=== PATIENT | male | born 1960 | race African-American/Black ===

== ENCOUNTER 2021-12-18 08:07 | Emergency (ER) | payer MEDICAID, OTHER ==
[~2021-12-18] VITALS: Ht 167.6 cm; Wt 64.0 kg
[2021-12-18] MEDS ORDERED: TETANUS, DIPHTHERIA, PERTUSSIS VAC/PF 0.5ML (>10YR OLD) IM ONE (09:00)
[2021-12-18] MEDS ORDERED: IBUPROFEN 600MG TABLET PO ONE (09:00)
[2021-12-18] MEDS ORDERED: IBUP-2029 MT (09:06)
[2021-12-18] MEDS ORDERED: AMOX-424 MT (09:06)
[2021-12-18 09:11] VITALS: BP 155/101
== END 2021-12-18 09:27 | disposition home or self-care (01) ==
LOC: ER 08:07
DX: S80.872A Other superficial bite, left lower leg, initial encounter (principal); I25.10 Atherosclerotic heart disease of native coronary artery without angina pectoris; I10 Essential (primary) hypertension; E78.00 Pure hypercholesterolemia, unspecified; W54.0XXA Bitten by dog, initial encounter; Y93.89 Activity, other specified; Y92.89 Other specified places as the place of occurrence of the external cause
CPT/HCPCS: 90471; 90715; 99283

== ENCOUNTER 2021-12-22 08:26 | Emergency (ER) | payer OTHER ==
[~2021-12-22] VITALS: Ht 167.6 cm; Wt 63.0 kg
[~2021-12-22 08:26] MED LIST: AMOX-424 MT; IBUP-2029 MT
[2021-12-22 08:33] VITALS: BP 164/104
[2021-12-22] MEDS ORDERED: AMOXICILLIN/POTASSIUM CLAVULANATE 875/125MG TAB PO ONE (09:00)
== END 2021-12-22 09:06 | disposition home or self-care (01) ==
LOC: ER 08:26
DX: Z48.00 Encounter for change or removal of nonsurgical wound dressing (principal); I10 Essential (primary) hypertension; I25.10 Atherosclerotic heart disease of native coronary artery without angina pectoris; E78.00 Pure hypercholesterolemia, unspecified; F17.210 Nicotine dependence, cigarettes, uncomplicated; Z71.6 Tobacco abuse counseling
CPT/HCPCS: 99283; 99406

== ENCOUNTER 2024-05-05 05:49 | Emergency (ER) | payer MEDICAID, OTHER ==
[~2024-05-05] VITALS: Ht 167.6 cm; Wt 64.0 kg
[2024-05-05 05:55] VITALS: O2SAT 100
[2024-05-05] MEDS ORDERED: CEPH500C2 MT (07:27)
[2024-05-05] MEDS ORDERED: SULF1TAB47 MT (07:28)
[2024-05-05 07:42] VITALS: BP 147/89; PULSE 85; RESP 18; TEMP 36.83628; O2SAT 100
== END 2024-05-05 07:44 | disposition home or self-care (01) ==
LOC: ER 05:49
DX: S40.261A Insect bite (nonvenomous) of right shoulder, initial encounter (principal); W57.XXXA Bitten or stung by nonvenomous insect and other nonvenomous arthropods, initial encounter; Y93.89 Activity, other specified; Y92.89 Other specified places as the place of occurrence of the external cause; Y99.8 Other external cause status
CPT/HCPCS: 99283

== ENCOUNTER 2024-07-13 07:51 | Emergency (ER) | payer OTHER ==
[~2024-07-13] VITALS: Ht 167.6 cm; Wt 64.0 kg
[~2024-07-13 07:51] MED LIST changes: +CEPH500C2 MT; +SULF1TAB47 MT
[2024-07-13 07:54] VITALS: O2SAT 98
[2024-07-13] MEDS ORDERED: AZIT500T8 MT (08:29)
[2024-07-13] MEDS ORDERED: FLUT16SP15 BOTHNSTRLS (08:30)
[2024-07-13 09:00] VITALS: BP 152/80; PULSE 97; RESP 16; TEMP 36.94740; O2SAT 98
== END 2024-07-13 09:00 | disposition home or self-care (01) ==
LOC: ER 07:51
DX: J18.9 Pneumonia, unspecified organism (principal); J06.9 Acute upper respiratory infection, unspecified; M46.1 Sacroiliitis, not elsewhere classified; I10 Essential (primary) hypertension; Z79.899 Other long term (current) drug therapy; Z20.822 Contact with and (suspected) exposure to COVID-19
CPT/HCPCS: 71045; 87426; 87804; 99284